=== PATIENT | female | born 1990 | race African-American/Black ===

== ENCOUNTER 2020-04-05 13:53 | Emergency (ER) | payer OTHER ==
[~2020-04-05] VITALS: Ht 167.6 cm; Wt 63.5 kg
--- NOTE | ~2020-04-05 | EMS ---
[address] [address] EMS Patient Care Report Name: MARIAH EDWARDS Room #: REG LUIS [facility]#: [id number] Admission: 04/05/20 Attend Phys: Discharge: Date of : 88 Report #: [id number] THIS REPORT FOR: //name// Report Transmitted: 04/05/2020 14:24 EMS Care Summary [place], [place]/[facility] Incident [id number] @ 04/05/2020 13:18 Incident Location [address] [place], [place] [id number] Patient MARIAH EDWARDS Female, 29 Years 1990 Patient Address [address] [place], [place] [id number] Patient History Migraine,Depression,Anxiety,Post Traumatic Stress Disorder (PTSD),Insomnia, Patient Allergies Cephalexin,Doxycycline,Keflex,Cipro, Patient Medications Flexeril, Trazodone, Buspirone, Citalopram, Gabapentin, Amitriptyline, Chief Complaint HEADACHE Disposition Transported No Lights/[place] [facility] [place] FOUND AMBULATORY WALKING OUT DOOR DOWN STAIRS OF HOUSE. [facility] T11 ON SCENE. PT WALKED TO AMBULANCE WITHOUT INCIDENT. PT STATES SHE HAS HAD A MIGRAINE TYPE HEADACHE SINCE SATURDAY AND THAT NOTHING SHE HAS TAKEN HELPS FOR VERY LONG. PT DENIES OTHER COMPLAINTS. TRASNPROTED WITHOUT INCIDENT. PT GIVEN MASK FOR [address] [address] EMS Patient Care Report Name: MARIAH EDWARDS Room #: REG [facility]#: [id number] Admission: 04/05/20 Attend Phys: Discharge: Date of : 88 Report #: [id number] TRANSPORT. Initial Vitals @13:44P: 124,R: 18,BP: 130/90, @13:33P: 121,R: 18,BP: 130/90,Pain: 8/10,GCS: 15,SpO2: 100,Revised Trauma: 12, Assessments @13:32MENTAL:No Abnormalities,SKIN:No Abnormalities,HEENT:Head/Face: No Abnormalities,Eyes: No Abnormalities,Neck/Airway: No Abnormalities,LUNG SOUNDS:ABDOMEN:PELVIS//GI:EXTREMITIES:PULSE:NEURO: Impression Headache Procedures @13:32ALS AssessmentResponse: UnchangedSucceeded Timeline 13:16,Call Received 13:16,Dispatch Notified 13:18,Dispatched 13:19,En Route 13:31,On Scene 13:32,At Patient 13:32,ALS Assessment,Response: UnchangedSucceeded, 13:33,BP: 130/90 M,PULSE: 121,RR: 18 R,SPO2: 100 Ox,ETCO2: ,BG: ,PAIN: 8,GCS: 15, 13:39,Depart Scene 13:44,BP: 130/90 M,PULSE: 124,RR: 18 R,SPO2: Ox,ETCO2: ,BG: ,PAIN: ,GCS: , 13:59,At Destination 14:05,Call Closed Disclaimer [email or web address] Copyright 2020 [employer] This EMS Care Summary contains data elements from the applicable legal record (which may be displayed differently). It is designed to provide pertinent information for the following purposes: continuity of care, clinical quality, and state data reporting. The complete legal record is available to ED staff and administrators of the receiving hospital in [facility]'s Patient Tracker. All data is provided "as is."
[~2020-04-05 13:53] MED LIST: ALBUTEROL INHAL17 GM IH; BACTRIM DS TAB1 EACH PO; CIPROFLOXACIN500 M3 PO; DARVOCET-N 1001 EACH PO; DOXYCYCLINE 10100 M1 PO; FLEXERIL PO; IRON325; KEFLEX500 MG PO; LIDOCAINE 22 %/30 GM TOP; LORTAB 5 MG/5001 TA1 PO; MACROBID 100 M100 M1 PO; MEDROLDOSEPACK PO; NAPROSYN500 MG PO; NOHOMEMEDICATIONS; NORCO 5-325 TA1 EACH PO; NORFLEX100 MG PO; PEPCID AC20 M1 PO; PHENERGAN 25 MG25 M1 PO; PRENATAL 19 TA1 EAC1; PROVENTIL; PYRIDIUM200 MG PO; VENTOLIN HFA INH8 GM
[2020-04-05] MEDS ORDERED: NEURONTIN300 MG PO (14:07)
[2020-04-05] MEDS ORDERED: TRAZODONE HCL50 MG PO (14:07)
[2020-04-05] MEDS ORDERED: LEXAPRO20 MG PO (14:07)
[2020-04-05] MEDS ORDERED: FLEXERIL PO (14:08)
[2020-04-05] MEDS ORDERED: BUSPIRONE HCL10 MG PO (14:08)
[2020-04-05 16:28] VITALS: BP 115/80
== END 2020-04-05 16:38 | disposition home or self-care (01) ==
LOC: ER 13:53
DX: G43.909 Migraine, unspecified, not intractable, without status migrainosus (principal); J45.909 Unspecified asthma, uncomplicated; F17.210 Nicotine dependence, cigarettes, uncomplicated; Z79.899 Other long term (current) drug therapy; Z88.1 Allergy status to other antibiotic agents; Z88.8 Allergy status to other drugs, medicaments and biological substances